=== PATIENT | male | born 1990 | race Caucasian/White ===

== ENCOUNTER 2021-04-02 11:17 | Emergency (ER) | payer SELFPAY ==
[~2021-04-02] VITALS: Ht 172.7 cm; Wt 105.0 kg
[2021-04-02] MEDS ORDERED: IBUPROFEN 600MG TABLET PO ONE (11:45)
[2021-04-02 12:18] VITALS: BP 147/90
[2021-04-02] MEDS ORDERED: IBUP-2029 MT (12:22)
== END 2021-04-02 15:31 | disposition home or self-care (01) ==
LOC: ER 11:17
DX: M79.642 Pain in left hand (principal); S60.222A Contusion of left hand, initial encounter; X58.XXXA Exposure to other specified factors, initial encounter; Y93.89 Activity, other specified; Y92.89 Other specified places as the place of occurrence of the external cause; Y99.8 Other external cause status
CPT/HCPCS: 73130; 99283